=== PATIENT | male | born 1990 | race Caucasian/White ===

== ENCOUNTER 2019-01-11 08:33 | Day surgery (SDC) | payer OTHER ==
[2019-01-08 18:12] VITALS: BMI 30.5
[2019-01-11] MEDS ORDERED: ACETAMINOPHEN 325 MG TABLET (FP) ONE (08:54)
[2019-01-11] MEDS ORDERED: MIDAZOLAM HCL 2 MG/2 ML SINGLE DOSE VIAL ONE (10:54)
[2019-01-11] MEDS ORDERED: fentaNYL CITRATE 250 MCG/5 ML VIAL ONE (10:54)
[2019-01-11] MEDS ORDERED: BUPIVACAINE HCL/PF 2.5 MG/ML - 30 ML VIAL IJ ONE (10:59)
--- NOTE | 2019-01-11 11:09 | HP ---
History & Physical Update - History History: No Change - Physical Physical: No Change - Assessment Assessment: No Change - Plan Plan: No Change
[2019-01-11] MEDS ORDERED: KETOROLAC TROMETHAMINE 30 MG/1 ML VIAL ONE (12:25)
[2019-01-11] MEDS ORDERED: DEXAMETHASONE SOD PHOSPHATE 4 MG/1 ML VIAL ONE (12:25)
[2019-01-11] MEDS ORDERED: LIDOCAINE HCL/PF 2% SDV 5ML VIAL ONE (12:25)
[2019-01-11] MEDS ORDERED: ONDANSETRON 4 MG/2 ML VIAL ONE (12:25)
[2019-01-11] MEDS ORDERED: ceFAZolin SODIUM 1 GM VIAL ONE (12:25)
--- NOTE | 2019-01-11 12:29 | OPR ---
DATE OF OPERATION: 01/11/19 TITLE OF OPERATION: Left Medial partial meniscectomy, and synovectomy (limited). PREOPERATIVE DIAGNOSIS: Left Medial meniscus tear, synovitis. POSTOPERATIVE DIAGNOSIS: Left Medial meniscus tear,and synovitis SURGEON: Alexis Hernandez DO WARP CHANGER: Champ Muir DO ANESTHESIA: General anesthesia SPECIMEN: Meniscus shavings COMPLICATIONS: none EBL: 5cc INDICATIONS FOR SURGERY: Mr. Sam is a 28 year old male who presented in the preoperative setting with a chief complaint of left knee pain. Based on their mechanical symptoms, pre- injury levelof activity, and after failure of conservative management, including activity modification and home exercise program, surgical treatment was discussed. The risks and benefits of surgery and anesthesia were discussed in detail including but notlimited to pain, bleeding, infection, scarring, damage to vessels andnerves, failure to obtain the desired result, failure to heal, failureto return to sport or work.Understanding the risks and benefits, Mr. Sam opted to proceed with surgical management. SURGEON'S NARRATIVE: After informed consent was obtained the patient was brought the operating room prepped draped in usual fashion sterile technique. Timeout was called. Site verification was performed and perioperative antibodies were administered. A standard anterolateral portal was made and the 4 mm 30 degree arthroscope was inserted into the knee joint without difficulty. This revealed no significant patellofemoral chondromalacia, but did demonstrate synovitic fronts over the inferior and medial portions of the patella.Turning my attention the medial compartment, the patient had a radial, and intrasubstance tear of the body and posterior horn of the medial meniscus that reached the articular surface. There was no associated chondromalacia of the medial femoral condyle or tibial plateau.I performed a partial medial meniscectomy removing the torn tissue with arthroscopic shaver and biter.I estimate that I removed approximately 25 percent of the meniscus.The remaining meniscus was intact after the resection from root to root. The ACL was examined and was intact. Turning my attention the lateral compartment the patient, the lateral meniscus was probed, and there was no tear of the lateral meniscus. There was also no significant associated chondromalacia of the lateral compartment. The meniscus was intact from root to root. I then went into the patellofemoral compartment to complete a limited synovectomy, and of the patellofemoral joint. This completed the procedure. I closed incisions with 3-0 nylon. A sterile dressing and xeroform and an KIKI bandage was placed. The patient tolerated procedure well and arrived recovery in stable condition. Champ Muir DO was first-surgical first assistant in the case as there were no qualified assistants or residents available. Patient will follow up with me in the office within 10-14 days for suture removal. He will start ASA 325 QD starting tomorrow for 30 days. He will be WBAT with crutches, and start Physical therapy within 7 days. Alexis Hernandez DO
[2019-01-11] MEDS ORDERED: ONDANSETRON 4 MG/2 ML VIAL IVPUSH PRN (12:48)
[2019-01-11] MEDS ORDERED: oxyCODONE HCL 5 MG TABLET PO PRN ×2 (12:48)
[2019-01-11] MEDS ORDERED: LACTATED RINGERS SOLUTION 1,000 ML IV SCH (13:00)
[2019-01-11 15:11] VITALS: BP 124/88; PULSE 80; TEMP 98.7
--- NOTE | 2019-01-16 13:36 | PATH ---
Surgical Pathology Report Patient Name: EVANGELIST SEGURA Med. Rec. #: [id number] /Age/Gender: 1990 (Age: 28) / M Account: [id number] Location: [facility] Taken: 01/11/2019 Received: 01/11/2019 Reported: 01/16/2019 Physicians: Alexis Hernandez MD Specimen(s) Received LEFT KNEE SHAVINGS Clinical History Left medial meniscus tear Final Diagnosis KNEE, LEFT, ARTHROSCOPIC SHAVINGS: FIBROSYNOVIAL TISSUE AND CARTILAGE. Electronically Signed Lisset Macdonald M.D. Gross Description Received in formalin, labeled "left knee shavings," is a 4.0 x 3.0 x 0.3 cm. aggregate of gates-yellow soft tissue fragments. A product support sales representative portion is submitted in one cassette. [facility]14[facility]2019
== END 2019-01-11 14:20 | disposition home or self-care (01) ==
LOC: FASU 08:33
PROVIDERS: ATTEND Orthopaedic Surgery Sports Medicine
PROC: 0SBD4ZZ Excision of Left Knee Joint, Percutaneous Endoscopic Approach (ICD-10-PCS; principal; 2019-01-11 11:44)
DX: S83.242A Other tear of medial meniscus, current injury, left knee, initial encounter (principal); M65.9 Synovitis and tenosynovitis, unspecified; X58.XXXA Exposure to other specified factors, initial encounter; Y93.9 Activity, unspecified; Y92.9 Unspecified place or not applicable
CPT/HCPCS: 88304-TC; 94760

== ENCOUNTER 2021-01-22 08:42 | Day surgery (SDC) | payer BC ==
[2021-01-21 12:48] VITALS: BMI 30.5
[2021-01-22] MEDS ORDERED: MIDAZOLAM HCL 2 MG/2 ML SINGLE DOSE VIAL ONE (10:12)
[2021-01-22] MEDS ORDERED: ROPIVACAINE HCL 0.5% 30ML VIAL ONE (10:12)
[2021-01-22] MEDS ORDERED: LIDOCAINE HCL 2% 100 MG/5 ML DISP.SYRIN ONE (10:19)
[2021-01-22] MEDS ORDERED: LIDOCAINE HCL 2% JELLY (5 ML/TUBE) ONE (10:19)
[2021-01-22] MEDS ORDERED: PROPOFOL 20 ML ONE ×2 (10:20)
[2021-01-22] MEDS ORDERED: SEVOFLURANE 250 ML BTL ONE (12:03)
[2021-01-22] MEDS ORDERED: ONDANSETRON 4 MG/2 ML VIAL IVPUSH PRN (13:02)
[2021-01-22] MEDS ORDERED: PROMETHAZINE HCL 25 MG/1 ML VIAL IVPUSH PRN (13:02)
[2021-01-22] MEDS ORDERED: oxyCODONE HCL 5 MG TABLET PO PRN (13:02)
[2021-01-22 14:09] VITALS: TEMP 97.9
[2021-01-22 14:47] VITALS: BP 121/75; PULSE 81
== END 2021-01-22 14:45 | disposition home or self-care (01) ==
LOC: FASU 08:42
PROVIDERS: ATTEND Orthopaedic Surgery Sports Medicine
PROC: 0RBK4ZZ Excision of Left Shoulder Joint, Percutaneous Endoscopic Approach (ICD-10-PCS; 2021-01-22)
PROC: 0RQK4ZZ Repair Left Shoulder Joint, Percutaneous Endoscopic Approach (ICD-10-PCS; principal; 2021-01-22 11:28)
PROC: 0RQK4ZZ Repair Left Shoulder Joint, Percutaneous Endoscopic Approach (ICD-10-PCS; 2021-01-22 11:28)
DX: M75.112 Incomplete rotator cuff tear or rupture of left shoulder, not specified as traumatic (principal); S43.432A Superior glenoid labrum lesion of left shoulder, initial encounter; X58.XXXA Exposure to other specified factors, initial encounter; Y93.9 Activity, unspecified; Y92.9 Unspecified place or not applicable; M94.212 Chondromalacia, left shoulder; M25.112 Fistula, left shoulder
CPT/HCPCS: 94760